=== PATIENT | female | born 1995 | race Caucasian/White ===

== ENCOUNTER 2017-01-01 17:43 | Emergency (ER) | payer MEDICAID ==
--- NOTE | 2017-01-01 18:24 | EDM.PDOC ---
ED HPI RENAL/ - General Chief Complaint: Abdominal Pain Stated Complaint: abdominal pain Time Seen by Provider: 01/01/17 18:00 Source: Reports: Patient History Limitations: Reports: No limitations - History of Present Illness INITIAL COMMENTS - FREE TEXT/NARRATIVE: Cindi Denise comes to [facility] ED with RLQ pain near pelvic brim since this am. Pain is sharp at times, positional at times, and has not radiated to the back. There is no vaginal discharge, nausea or vomiting, fever, chills or sweats. She ordinarily has some loose stools because of Metformin for PCOS. Her LMP was early November. She is sexually active. She has had a . She tried Tylenol and Ibuprofen for pain without change. - Related Data Allergies/ADRs: Allergies Allergy/AdvReac Type Severity Reaction Status Date / Time No Known Allergies Allergy Verified 08/31/15 20:40 Home Meds: Home Meds medroxyPROGESTERone [Provera] 5 mg PO ASDIRECTED 08/31/15 [History] metFORMIN [Glucophage XR] 500 mg PO DAILY 08/31/15 [History] Citalopram Hydrobromide [Celexa] 20 mg PO DAILY 01/01/17 [History] hydrOXYzine HCl [Atarax] 25 mg PO BEDTIME 01/01/17 [History] Past Medical History Genitourinary History: Reports: Pyelonephritis [employer] History: Reports: Polycystic Ovaries, Psychiatric History: Reports: Anxiety, Bipolar, Depression, Psych Hospitalization(s), PTSD, Suicide attempt, Suicidal ideation, Other (see below) Other Psychiatric History: borderline personality Endocrine/Metabolic History: Reports: Obesity/BMI 30+ Dermatologic History: Reports: Eczema - Past Surgical History Female Surgical History: Reports: section Social & Family History - Tobacco Use Smoking Status *Q: Current Every Day Smoker Years of Tobacco use: 11 Packs/Tins Daily: 0.5 - Recreational Drug Use Recreational Drug Use: No ED ROS GENERAL - Review of Systems Review Of Systems: See Below Constitutional: Reports: no symptoms HEENT: Reports: No symptoms Respiratory: Reports: No Symptoms Cardiovascular: Reports: No symptoms Endocrine: Reports: no symptoms GI/Abdominal: Reports: Abdominal pain (near R pelvic brim) : Reports: pain Musculoskeletal: Reports: no symptoms Skin: Reports: no symptoms Neurological: Reports: No Symptoms Psychiatric: Reports: No symptoms Hematologic/Lymphatic: Reports: no symptoms Immunologic: Reports: no symptoms ED EXAM, RENAL/ - Physical Exam Exam: See Below Exam Limited By: No limitations General Appearance: alert, WD/WN, anxious, mild distress Head: normocephalic Neck: normal inspection, supple, non-tender, full range of motion Respiratory/Chest: lungs clear, normal breath sounds Cardiovascular: normal peripheral pulses, regular rate, rhythm, no murmur GI/Abdominal: normal bowel sounds, soft, no organomegaly, no distention, no mass , tender (below McBurney's Point, no guarding or rebound) Back Exam: normal inspection Extremities: normal inspection Neurological: alert, oriented, CN II-XII intact, normal cognition, normal gait, no motor/sensory deficits Psychiatric: normal affect, anxious Skin Exam: Warm, Dry, Intact, Normal color, No rash Lymphatic: no adenopathy Course - Vital Signs Text/Narrative:: Following assessment at the [facility] ED, labs were obtained: the CBC was normal, UA contaminated, se HCG < 2 (neg). Pain possibly due to PCOS, no findings for a surgical abdomen at this time. Patient is sxs improved. Last Recorded V/S: Last Vital Signs Temp 36.9 C 01/01/17 17:50 Pulse 116 H 01/01/17 17:50 Resp 18 01/01/17 17:50 BP 132/77 01/01/17 17:50 Pulse Ox 97 01/01/17 17:50 - Orders/Labs/Meds Labs: Laboratory Tests 01/01/17 01/01/17 01/01/17 Range/Units 18:20 18:27 18:27 WBC 8.3 (4.5-12.0) X10-3/uL RBC 4.88 (3.23-5.20) x10(6)uL Hgb 14.2 (11.5-15.5) g/dL Hct 41.8 (30.0-51.3) % MCV 85.7 (80-96) fL MCH 29.2 (27.7-33.6) pg MCHC 34.1 (32.2-35.4) g/dL RDW 12.8 (11.5-15.5) % Plt Count 324 (125-369) X10(3)uL MPV 7.0 L (7.4-10.4) fL Neut % (Auto) 49.2 (46-82) % Lymph % (Auto) 37.9 H (13-37) % [place] % (Auto) 6.6 (4-12) % Eos % (Auto) 6 H (1.0-5.0) % Baso % (Auto) 0 (0-2) % Neut # (Auto) 4.2 (1.6-8.3) # Lymph # (Auto) 3.1 (0.6-5.0) # [place] # (Auto) 0.5 (0.0-1.3) # Eos # (Auto) 0.5 (0.0-0.8) # Baso # (Auto) 0.0 (0.0-0.2) # HCG, Quant < 2 L (2.0 - ) mIU/mL Urine Color Yellow (YELLOW) Urine Appearance Clear (CLEAR) Urine pH 5.0 (5.0-6.5) Ur Specific [place] 1.025 (1.010-1.025) Urine Protein Negative (NEGATIVE) mg/dL Urine Glucose (UA) Normal (NEGATIVE) mg/dL Urine Ketones Negative (NEGATIVE) mg/dL Urine Occult Blood Moderate H (NEGATIVE) Urine Nitrite Negative (NEGATIVE) Urine Bilirubin Negative (NEGATIVE) Urine Urobilinogen Normal (NEGATIVE) mg/dL Ur Leukocyte Esterase Moderate H (NEGATIVE) Urine RBC 0-5 (0) Urine WBC 0-5 (0) Ur Squamous Epith Cells Moderate H (NS,R,O) Urine Bacteria Moderate H (NS) Departure - Departure Time of Disposition: 19:30 Disposition: Home, Self-Care 01 Condition: fair Clinical Impression: Polycystic ovary disease Forms: ED Department Discharge - Problem List & Annotations (1) Polycystic ovary disease SNOMED Code(s): 56481885 Code(s): E28.2 - POLYCYSTIC OVARIAN SYNDROME Status: Acute Current Visit : Yes Annotation/Comment:: Continue Ibuprofen for pain, activity as tolerated , and continue Metformin for PCOS. - Problem List Review Problem List Initiated/Reviewed/Updated: Yes - Assessment/Plan Plan: Follow up with PCP if sxs persist.
[2017-01-01 19:36] VITALS: BP 130/75
== END 2017-01-01 19:35 | disposition home or self-care (01) ==
LOC: FB.ED 17:43
DX: E28.2 Polycystic ovarian syndrome (principal); F41.9 Anxiety disorder, unspecified; F31.9 Bipolar disorder, unspecified; E66.9 Obesity, unspecified; F17.210 Nicotine dependence, cigarettes, uncomplicated; Z98.890 Other specified postprocedural states; Z79.84 Long term (current) use of oral hypoglycemic drugs; Z79.899 Other long term (current) drug therapy
CPT/HCPCS: 36415; 81001; 84702; 85025; 99284